=== PATIENT | female | born 1955 | race African-American/Black ===

== ENCOUNTER 2020-03-17 04:14 | Day surgery (SDC) | payer OTHER ==
[2020-03-14 09:48] VITALS: BMI 31.8
[2020-03-17] MEDS ORDERED: BUPIVACAINE HCL/PF 0.75% 10 ML VIAL ONE (07:13)
[2020-03-17] MEDS ORDERED: LIDOCAINE HCL/PF 1% SDV 5ML VIAL ONE (07:13)
[2020-03-17] MEDS ORDERED: BUPIVACAINE HCL 50 ML ONE (07:13)
[2020-03-17] MEDS ORDERED: DEXAMETHASONE SOD PHOSPHATE/PF 10 MG/ML SDV ONE (07:13)
[2020-03-17] MEDS ORDERED: SODIUM CHLORIDE 0.9% P/F 10 ML VIAL IJ ONE (07:21)
[2020-03-17] MEDS ORDERED: BUPIVACAINE HCL/PF 0.75% 10 ML VIAL CAUD ONE (13:04)
[2020-03-17] MEDS ORDERED: LIDOCAINE HCL 1% PRESERVATIVE FREE - 30ML VIAL INF ONE (13:04)
[2020-03-17] MEDS ORDERED: IOHEXOL 180 MG/1 ML ML IT ONE (13:05)
[2020-03-17 16:08] VITALS: BP 136/81; PULSE 81; TEMP 98.8
== END 2020-03-17 14:20 | disposition home or self-care (01) ==
LOC: JASU-SURG 04:14
PROVIDERS: ATTEND Pain Medicine Pain Medicine
PROC: 3E0T33Z Introduction of Anti-inflammatory into Peripheral Nerves and Plexi, Percutaneous Approach (ICD-10-PCS; 2020-03-17)
PROC: 3E0T3BZ Introduction of Anesthetic Agent into Peripheral Nerves and Plexi, Percutaneous Approach (ICD-10-PCS; principal; 2020-03-17 14:00)
DX: M54.16 Radiculopathy, lumbar region (principal)
CPT/HCPCS: 76000-TC-FY; 82962

== ENCOUNTER 2020-10-04 10:37 | Emergency (ER) | payer OTHER ==
[2020-10-04 10:56] VITALS: BP 153/91; PULSE 109; TEMP 98.2; BMI 29.6
[2020-10-04 12:08] LABS: HEMATOCRIT 29.8 % (32.4-45.2); HEMOGLOBIN 9.6 GM/dL (10.7-15.3); MCH 30.4 pg (25.7-33.7); MCHC 32.3 g/dl (32.0-36.0); MEAN CELL VOLUME 94.2 fl (80-96); MONO % 7.2 % (3.8-10.2); NEUT % 64.8 % (42.8-82.8); PLATELET COUNT 257 10^3/uL (134-434); RBC 3.16 M/mm3 (3.60-5.2); RDW 13.4 % (11.6-15.6)
[2020-10-04 12:26] LABS: CHLORIDE 102 mmol/L (98-107); SODIUM 134 mmol/L (136-145)
[2020-10-04 12:29] LABS: CALCIUM 9.4 mg/dL (8.5-10.1)
[2020-10-04 12:30] LABS: ALBUMIN 3.3 g/dl (3.4-5.0); BLOOD UREA NITROGEN 25.8 mg/dL (7-18); CO2 24 mmol/L (21-32); GLUCOSE,RANDOM 324 mg/dL (74-106); MAGNESIUM 2.2 mg/dL (1.8-2.4)
[2020-10-04 12:33] LABS: CREATININE 1.4 mg/dL (0.55-1.3); SGOT/AST 28 U/L (15-37); SGPT/ALT 25 U/L (13-61)
[2020-10-04 12:34] LABS: BILIRUBIN,TOTAL 0.4 mg/dL (0.2-1)
[2020-10-04 12:35] LABS: TOT PROT 7.2 g/dl (6.4-8.2)
[2020-10-04 12:36] LABS: ALK PHOS 100 U/L (45-117)
[2020-10-04 12:44] LABS: ANION GAP 7 MMOL/L (8-16)
[2020-10-04 13:47] LABS: CHLORIDE 103 mmol/L (98-107); SODIUM 135 mmol/L (136-145)
[2020-10-04 13:48] LABS: CALCIUM 9.4 mg/dL (8.5-10.1)
[2020-10-04 13:49] LABS: BLOOD UREA NITROGEN 27.4 mg/dL (7-18); CO2 25 mmol/L (21-32); GLUCOSE,RANDOM 292 mg/dL (74-106)
[2020-10-04 13:52] LABS: CREATININE 1.4 mg/dL (0.55-1.3)
[2020-10-04 13:56] LABS: ANION GAP 6 MMOL/L (8-16)
[2020-10-04] MEDS ORDERED: SODIUM CHLORIDE 1,000 ML IV STA (14:05)
[2020-10-04] MEDS ORDERED: SODIUM ZIRCONIUM CYCLOSILICATE (LOKELMA) 5 GM PACKET ONE (16:07)
[2020-10-05] MEDS ORDERED: SODIUM ZIRCONIUM CYCLOSILICATE (LOKELMA) 5 GM PACKET PO ONE (14:00)
== END 2020-10-04 16:19 | disposition home or self-care (01) ==
LOC: JER 10:37
PROC: 3E0337Z Introduction of Electrolytic and Water Balance Substance into Peripheral Vein, Percutaneous Approach (ICD-10-PCS; principal; 2020-10-04)
DX: E87.5 Hyperkalemia (principal)
CPT/HCPCS: 36415; 80048; 80053; 83735; 85025; 93005; 93010; 99284-25

== ENCOUNTER 2021-04-18 16:00 | Emergency (ER) | payer OTHER ==
[2021-04-18 16:25] VITALS: BP 159/98; PULSE 102; TEMP 98.2; BMI 32.8
== END 2021-04-18 19:06 | disposition home or self-care (01) ==
LOC: FER 16:00
DX: S09.90XA Unspecified injury of head, initial encounter (principal); W19.XXXA Unspecified fall, initial encounter; Y92.9 Unspecified place or not applicable
CPT/HCPCS: 70450-TC; 99284-25

== ENCOUNTER 2021-04-20 11:08 | Day surgery (SDC) | payer OTHER ==
[2021-04-20 11:46] VITALS: BMI 33.5
[2021-04-20] MEDS ORDERED: BUPIVACAINE HCL 50 ML ONE (13:24)
[2021-04-20] MEDS ORDERED: BUPIVACAINE LIPOSOME/PF (EXPAREL) 266 MG/20 ML VIAL ONE (13:24)
[2021-04-20] MEDS ORDERED: BUPIVACAINE HCL/PF 0.25% (2.5MG/ML) 10 ML VIAL ONE (13:27)
[2021-04-20] MEDS ORDERED: MIDAZOLAM HCL 2 MG/2 ML SINGLE DOSE VIAL ONE (13:29)
[2021-04-20] MEDS ORDERED: PROPOFOL 20 ML ONE (13:53)
[2021-04-20] MEDS ORDERED: VANCOMYCIN 1,000 MG VIAL (RESTRICTED TO ID ONLY) ONE (14:03)
[2021-04-20] MEDS ORDERED: ceFAZolin SODIUM 1 GM VIAL ONE ×2 (14:03→21:03)
[2021-04-20] MEDS ORDERED: DEXAMETHASONE SOD PHOSPHATE 4 MG/1 ML VIAL ONE (14:20)
[2021-04-20] MEDS ORDERED: HYDROmorphone HCL/PF 1 MG/ML VIAL ONE (15:09)
[2021-04-20] MEDS ORDERED: ONDANSETRON 4 MG/2 ML VIAL ONE ×2 (16:02→17:00)
[2021-04-20] MEDS ORDERED: ONDANSETRON 4 MG/2 ML VIAL IVPUSH PRN (16:42)
[2021-04-20] MEDS ORDERED: MAG HYDROX/AL HYDROX/SIMETH 30 ML UNIT-DOSE CUP PO PRN (16:42)
[2021-04-20] MEDS ORDERED: LACTATED RINGERS SOLUTION 1,000 ML IV SCH (16:45)
[2021-04-20] MEDS ORDERED: ACETAMINOPHEN 1000 MG/100 ML BAG IVPB ONE (16:48)
[2021-04-20] MEDS ORDERED: oxyCODONE HCL 5 MG TABLET PO PRN (16:48)
[2021-04-20] MEDS ORDERED: ACETAMINOPHEN INJECTION 100 ML IVPB ONE (16:52)
[2021-04-20] MEDS: LACTATED RINGERS SOLUTION 1,000 ML IV SCH (18:19)
[2021-04-20] MEDS ORDERED: DEXTROSE 5%-WATER - 100 ML IVPB ONE (21:03)
[2021-04-20] MEDS: oxyCODONE HCL 5 MG TABLET PO PRN (21:20)
[2021-04-20] MEDS: GABAPENTIN 300 MG CAPSULE PO SCH (21:23)
[2021-04-20] MEDS: CEFAZOLIN 2 GM in DEXTROSE 5%-WATER - 100 ML IVPB SCH (21:23)
[2021-04-20] MEDS: SENNOSIDES/DOCUSATE COMBO (SENNA PLUS) TABLET (UD) PO SCH (21:23)
[2021-04-21] MEDS ORDERED: ceFAZolin SODIUM 1 GM VIAL ONE ×2 (05:40→13:31)
[2021-04-21] MEDS ORDERED: DEXTROSE 5%-WATER - 100 ML IVPB ONE ×2 (05:40→13:31)
[2021-04-21] MEDS: CEFAZOLIN 2 GM in DEXTROSE 5%-WATER - 100 ML IVPB SCH ×2 (05:46→13:35)
[2021-04-21] MEDS: oxyCODONE HCL 5 MG TABLET PO PRN ×3 (05:57→16:26)
[2021-04-21 08:16] LABS: CALCIUM 9.1 mg/dl (8.5-10)
[2021-04-21] MEDS: GABAPENTIN 300 MG CAPSULE PO SCH (09:30)
[2021-04-21] MEDS: SENNOSIDES/DOCUSATE COMBO (SENNA PLUS) TABLET (UD) PO SCH (09:30)
[2021-04-21] MEDS ORDERED: MULTIVITAMINS (DAILY MVI) TABLET (FP) PO SCH (10:00)
[2021-04-21] MEDS ORDERED: PANTOPRAZOLE 40 MG TABLET PO SCH (10:00)
[2021-04-21] MEDS ORDERED: PATIENT'S OWN MEDICATION (NON-FORMULARY) (Sitagliptin Phos/Metformin Hcl [Janumet 50-1,000 PO SCH (10:45)
[2021-04-21 11:22] LABS: HEMATOCRIT 32.7 % (32.4-45.2); HEMOGLOBIN 10.2 GM/dL (10.7-15.3); MCHC 31.3 g/dl (32.0-36.0); MEAN CELL VOLUME 89.4 fl (80-96); MEAN PLT VOLUME 11.3 fl (7.5-11.1); PLATELET COUNT 257 10^3/uL (134-434); RBC 3.66 M/mm3 (3.60-5.2); RDW 14.2 % (11.6-15.6); WHITE BLOOD COUNT 8.6 K/mm3 (4.0-10.0)
[2021-04-21] MEDS: LACTATED RINGERS SOLUTION 1,000 ML IV SCH (16:28)
[2021-04-21] MEDS ORDERED: metFORMIN HCL 500 MG TABLET (FP) PO SCH (16:30)
[2021-04-21] MEDS ORDERED: sitaGLIPtin PHOSPHATE 50 MG TABLET PO SCH (16:30)
[2021-04-21 18:55] VITALS: BP 127/68; PULSE 79; TEMP 98.4
[2021-04-21] MEDS ORDERED: ASPIRIN 325 MG TABLET PO SCH (22:00)
[2021-04-22] MEDS ORDERED: amLODIPine BESYLATE 10 MG TABLET (FP) PO SCH (10:00)
[2021-04-22] MEDS ORDERED: metoPROLOL SUCCINATE 25 MG TAB.SR.24H (FP) PO SCH (10:00)
[2021-04-22] MEDS ORDERED: ATORVASTATIN CA 10 MG TABLET (FP) PO SCH (10:00)
== END 2021-04-21 19:10 | disposition home or self-care (01) ==
LOC: FASU 11:08 → FM/S 16:06 → FASU 04-21 19:10
PROVIDERS: ATTEND Orthopaedic Surgery Sports Medicine
PROC: 0QSG04Z Reposition Right Tibia with Internal Fixation Device, Open Approach (ICD-10-PCS; 2021-04-20)
PROC: 0SSF0ZZ Reposition Right Ankle Joint, Open Approach (ICD-10-PCS; 2021-04-20)
PROC: 0QSJ04Z Reposition Right Fibula with Internal Fixation Device, Open Approach (ICD-10-PCS; principal; 2021-04-20 14:34)
DX: S82.841A Displaced bimalleolar fracture of right lower leg, initial encounter for closed fracture (principal); X58.XXXA Exposure to other specified factors, initial encounter; Y93.9 Activity, unspecified; Y92.9 Unspecified place or not applicable
CPT/HCPCS: 27814; 27829; C1713; 36415; 73610-TC-RT-FY; 80048; 82962; 85027; 94760; 97116-GP; 97162-GP

== ENCOUNTER 2021-05-12 09:32 | Inpatient (IN) | payer OTHER ==
[2021-05-12 11:01] LABS: HEMATOCRIT 31.9 % (32.4-45.2); HEMOGLOBIN 10.3 GM/dL (10.7-15.3); MCH 27.5 pg (25.7-33.7); MCHC 32.2 g/dl (32.0-36.0); MEAN CELL VOLUME 85.4 fl (80-96); PLATELET COUNT 178 10^3/uL (134-434); RBC 3.74 M/mm3 (3.60-5.2); RDW 15.4 % (11.6-15.6); WHITE BLOOD COUNT 4.4 K/mm3 (4.0-10.0)
[2021-05-12] MEDS ORDERED: SODIUM CHLORIDE 0.9% 500 ML INFUS.BAG IV ONE (11:01)
[2021-05-12] MEDS ORDERED: ACETAMINOPHEN 1000 MG/100 ML BAG IVPB ONE ×2 (11:01→20:24)
[2021-05-12 11:16] LABS: INR 0.97 (0.83-1.09); PROTHROMBIN TIME (PATIENT) 11.1 SEC (9.7-13.0)
[2021-05-12 11:19] LABS: ACTIVATED PTT 32.7 SECONDS (25.2-36.5)
[2021-05-12 11:29] LABS: CHLORIDE 100 mmol/L (98-107); SODIUM 128 mmol/L (136-145)
[2021-05-12 11:31] LABS: ALBUMIN 2.7 g/dl (3.4-5.0); BLOOD UREA NITROGEN 27.8 mg/dL (7-18); CALCIUM 8.6 mg/dL (8.5-10.1); GLUCOSE,RANDOM 182 mg/dL (74-106); MAGNESIUM 2.3 mg/dL (1.8-2.4)
[2021-05-12] MEDS ORDERED: ACETAMINOPHEN INJECTION 100 ML IVPB ONE (11:31)
[2021-05-12 11:34] LABS: CO2 22 mmol/L (21-32); CREATININE 1.5 mg/dL (0.55-1.3); PHOSPHOROUS 3.7 mg/dL (2.5-4.9)
[2021-05-12 11:35] LABS: ANISOCYTOSIS 0; HELMET CELLS 0; HOWELL-JOLLY BODIES 0; MACROCYTOSIS 0; OVALOCYTE 0; ROULEAU 0; SICKELED CELLS 0; TARGET CELLS 0; TEAR DROP CELLS 0; TOXIC GRANULATION 0
[2021-05-12 11:36] LABS: BILIRUBIN,TOTAL 0.7 mg/dL (0.2-1); TOT PROT 7.1 g/dl (6.4-8.2)
[2021-05-12 11:37] LABS: ALK PHOS 104 U/L (45-117)
[2021-05-12 11:48] LABS: ANION GAP 6 MMOL/L (8-16); SGOT/AST 213 U/L (15-37); SGPT/ALT 62 U/L (13-61)
[2021-05-12 13:34] LABS: EPI CELLS 6 /uL (0-25.1); HYALINE CASTS 0 /uL (0-3.1); URINE APPEARANCE CLEAR; URINE BACTERIA 0 /uL (0-1359); URINE BILIRUBIN NEGATIVE (NEGATIVE); URINE COLOR YELLOW; URINE GLUCOSE (UA) NEGATIVE (NEGATIVE); URINE KETONE TRACE (NEGATIVE); URINE LEUK ESTERASE NEGATIVE (NEGATIVE); URINE NITRITE NEGATIVE (NEGATIVE); URINE PROTEIN 4+ (NEGATIVE); URINE RBC 56 /uL (0-23.9); URINE UROBILINOGEN 0.2 mg/dL (0.2-1.0); URINE WBC 4 /uL (0-25.8)
[2021-05-12 13:45] LABS: CHLORIDE 102 mmol/L (98-107); SODIUM 129 mmol/L (136-145)
[2021-05-12 13:46] LABS: CALCIUM 8.4 mg/dL (8.5-10.1)
[2021-05-12 13:47] LABS: CO2 24 mmol/L (21-32); GLUCOSE,RANDOM 181 mg/dL (74-106)
[2021-05-12 13:50] LABS: CREATININE 1.4 mg/dL (0.55-1.3)
[2021-05-12 14:06] LABS: ANION GAP 4 MMOL/L (8-16)
[2021-05-12] MEDS ORDERED: VANCOMYCIN 1 GM in D5W (PRE-DOCKED) 1,000 MG/250 ML IVPB ONE (15:56)
[2021-05-12] MEDS ORDERED: PIPERACILLIN/TAZOB 4.5 GM 4.5 GM in DEXTROSE 5%-WATER 100 ML IVPB ONE (15:56)
[2021-05-12 16:54] LABS: CHLORIDE 103 mmol/L (98-107); SODIUM 132 mmol/L (136-145)
[2021-05-12 16:55] LABS: CALCIUM 8.6 mg/dL (8.5-10.1)
[2021-05-12 16:56] LABS: ANION GAP 8 MMOL/L (8-16); BLOOD UREA NITROGEN 29.6 mg/dL (7-18); CO2 22 mmol/L (21-32); GLUCOSE,RANDOM 169 mg/dL (74-106)
[2021-05-12 16:59] LABS: CREATININE 1.3 mg/dL (0.55-1.3)
[2021-05-12] MEDS ORDERED: PIPERACILLIN/TAZOB 4.5 GM 4.5 GM/100 ML BAG IVPB ONE (17:03)
[2021-05-12] MEDS ORDERED: VANCOMYCIN 1 GRAM (PRE-DOCKED) 1,000 MG/250 ML BAG IVPB ONE (17:04)
[2021-05-12] MEDS: SODIUM CHLORIDE 1,000 ML IV SCH (17:20)
[2021-05-12] MEDS ORDERED: ACETAMINOPHEN 325 MG TABLET (FP) PO PRN (17:36)
[2021-05-12] MEDS ORDERED: ENOXAPARIN NA (PORCINE) 40 MG/0.4 ML DISP.SYRIN SQ ONE (19:31)
[2021-05-12] MEDS ORDERED: PIPERACILLIN/TAZOB 3.375 GM 3.375 GM/50 ML BAG IVPB ONE (19:31)
[2021-05-12] MEDS: ENOXAPARIN NA (PORCINE) 40 MG/0.4 ML DISP.SYRIN SQ SCH (20:07)
[2021-05-12] MEDS: PIPERACILLIN/TAZOB 3.375 GM 3.375 GM in DEXTROSE 5%-WATER - 50 ML IVPB SCH (20:44)
[2021-05-12] MEDS ORDERED: DOCUSATE SODIUM 100 MG CAPSULE (FP) PO ONE (22:26)
[2021-05-12] MEDS ORDERED: ATORVASTATIN CA 20 MG TABLET (FP) ONE (22:26)
[2021-05-12] MEDS: PRAMIPEXOLE DIHYDROCHLORIDE 0.25 MG TABLET PO SCH (22:57)
[2021-05-12] MEDS: ATORVASTATIN CA 20 MG TABLET (FP) PO SCH (22:57)
[2021-05-12] MEDS: GABAPENTIN 300 MG CAPSULE PO SCH (22:57)
[2021-05-12] MEDS: DOCUSATE SODIUM 100 MG CAPSULE (FP) PO SCH (22:57)
[2021-05-13] MEDS ORDERED: PIPERACILLIN/TAZOB 3.375 GM 3.375 GM/50 ML BAG IVPB ONE ×2 (02:53→10:23)
[2021-05-13] MEDS: PIPERACILLIN/TAZOB 3.375 GM 3.375 GM in DEXTROSE 5%-WATER - 50 ML IVPB SCH ×2 (03:25→11:06)
[2021-05-13] MEDS: GABAPENTIN 300 MG CAPSULE PO SCH ×3 (06:21→21:25)
[2021-05-13 07:06] LABS: HEMATOCRIT 26.4 % (32.4-45.2); HEMOGLOBIN 8.9 GM/dL (10.7-15.3); MCH 28.4 pg (25.7-33.7); MCHC 33.8 g/dl (32.0-36.0); MEAN PLT VOLUME 10.2 fl (7.5-11.1); PLATELET COUNT 138 10^3/uL (134-434); RBC 3.14 M/mm3 (3.60-5.2); RDW 15.1 % (11.6-15.6); WHITE BLOOD COUNT 4.1 K/mm3 (4.0-10.0)
[2021-05-13 07:31] LABS: CHLORIDE 105 mmol/L (98-107); SODIUM 133 mmol/L (136-145)
[2021-05-13 07:34] LABS: ALBUMIN 2.4 g/dl (3.4-5.0); CALCIUM 8.1 mg/dL (8.5-10.1)
[2021-05-13 07:35] LABS: ANION GAP 6 MMOL/L (8-16); BLOOD UREA NITROGEN 23.8 mg/dL (7-18); CO2 22 mmol/L (21-32); GLUCOSE,RANDOM 193 mg/dL (74-106)
[2021-05-13 07:37] LABS: CHOLESTEROL 112 mg/dL (50-200); CREATININE 1.1 mg/dL (0.55-1.3); SGOT/AST 113 U/L (15-37)
[2021-05-13 07:38] LABS: PHOSPHOROUS 2.7 mg/dL (2.5-4.9); SGPT/ALT 47 U/L (13-61); TRIGLYCERIDES 363 mg/dL (0-150)
[2021-05-13 07:39] LABS: BILIRUBIN,TOTAL 0.6 mg/dL (0.2-1); LDL CHOLESTEROL (ONLY SJRH) 19 mg/dL (5-100); TOT PROT 5.7 g/dl (6.4-8.2)
[2021-05-13 07:40] LABS: ALK PHOS 91 U/L (45-117); HDL CHOLESTEROL 18 mg/dL (40-60)
[2021-05-13] MEDS: ELVITEG/COB/EMTRI/TENOF (GENVOYA) TABLET (NF) PO SCH (09:00)
[2021-05-13 09:47] LABS: IRON SERUM 47 ug/dL (50-175); TOTAL IRON BINDING CAPACITY 188 ug/dL (250-450)
[2021-05-13] MEDS: ASPIRIN COATED 81 MG TABLET.EC PO SCH (10:00)
[2021-05-13] MEDS ORDERED: FAMOTIDINE 40 MG TABLET PO SCH (10:00)
[2021-05-13] MEDS ORDERED: PATIENT'S OWN MEDICATION (NON-FORMULARY) (Famotidine [Pepcid] 40 MG Tablet) PO SCH (10:00)
[2021-05-13] MEDS: DOCUSATE SODIUM 100 MG CAPSULE (FP) PO SCH (10:00)
[2021-05-13] MEDS: ENOXAPARIN NA (PORCINE) 40 MG/0.4 ML DISP.SYRIN SQ SCH (10:00)
[2021-05-13] MEDS: amLODIPine BESYLATE 10 MG TABLET (FP) PO SCH (10:04)
[2021-05-13] MEDS: metoPROLOL SUCCINATE 25 MG TAB.SR.24H (FP) PO SCH (10:06)
[2021-05-13 10:07] LABS: ANISOCYTOSIS 0; HELMET CELLS 0; HOWELL-JOLLY BODIES 0; MACROCYTOSIS 0; OVALOCYTE 0; ROULEAU 0; SICKELED CELLS 0; TARGET CELLS 0; TEAR DROP CELLS 0; TOXIC GRANULATION 0
[2021-05-13] MEDS ORDERED: metoPROLOL SUCCINATE 25 MG TAB.SR.24H (FP) ONE (10:20)
[2021-05-13] MEDS ORDERED: ASPIRIN COATED 81 MG TABLET.EC ONE (10:20)
[2021-05-13] MEDS ORDERED: FAMOTIDINE 20 MG TABLET ONE (10:20)
[2021-05-13] MEDS ORDERED: amLODIPine BESYLATE 10 MG TABLET (FP) ONE (10:20)
[2021-05-13] MEDS ORDERED: DOCUSATE SODIUM 100 MG CAPSULE (FP) PO ONE (10:21)
[2021-05-13] MEDS ORDERED: ENOXAPARIN NA (PORCINE) 40 MG/0.4 ML DISP.SYRIN SQ ONE (10:22)
[2021-05-13] MEDS ORDERED: CEFTRIAXONE 1 GM/50 ML BAG ONE (10:26)
[2021-05-13] MEDS: PRAMIPEXOLE DIHYDROCHLORIDE 0.25 MG TABLET PO SCH ×2 (12:00→21:25)
[2021-05-13] MEDS: SODIUM CHLORIDE 1,000 ML IV SCH (18:31)
[2021-05-13 19:05] VITALS: BMI 33.5
[2021-05-13 19:10] LABS: SARS-CoV-2 NAA Not Detected (Not Detected)
[2021-05-13] MEDS: traMADol HCL 50 MG TABLET PO PRN (21:25)
[2021-05-13] MEDS: ATORVASTATIN CA 20 MG TABLET (FP) PO SCH (21:25)
[2021-05-13] MEDS: MELATONIN 5 MG TABLETS PO PRN (21:25)
[2021-05-14] MEDS: GABAPENTIN 300 MG CAPSULE PO SCH ×3 (06:10→20:59)
[2021-05-14] MEDS: ENOXAPARIN NA (PORCINE) 40 MG/0.4 ML DISP.SYRIN SQ SCH (10:15)
[2021-05-14] MEDS: metoPROLOL SUCCINATE 25 MG TAB.SR.24H (FP) PO SCH (10:15)
[2021-05-14] MEDS: amLODIPine BESYLATE 10 MG TABLET (FP) PO SCH (10:15)
[2021-05-14] MEDS: ASPIRIN COATED 81 MG TABLET.EC PO SCH (10:16)
[2021-05-14] MEDS: ELVITEG/COB/EMTRI/TENOF (GENVOYA) TABLET (NF) PO SCH (10:17)
[2021-05-14] MEDS: PRAMIPEXOLE DIHYDROCHLORIDE 0.25 MG TABLET PO SCH ×2 (10:17→20:59)
[2021-05-14 12:08] LABS: BASO % 0.9 % (0-2.0); EOS % 11.2 % (0-4.5); HEMOGLOBIN 8.4 GM/dL (10.7-15.3); LYMPH % 30.8 % (8-40); MCH 27.7 pg (25.7-33.7); MCHC 32.4 g/dl (32.0-36.0); MEAN CELL VOLUME 85.3 fl (80-96); MEAN PLT VOLUME 10.7 fl (7.5-11.1); MONO % 12.5 % (3.8-10.2); NEUT % 44.6 % (42.8-82.8); PLATELET COUNT 150 10^3/uL (134-434); RBC 3.05 M/mm3 (3.60-5.2); WHITE BLOOD COUNT 4.2 K/mm3 (4.0-10.0)
[2021-05-14 12:21] LABS: CHLORIDE 104 mmol/L (98-107); SODIUM 134 mmol/L (136-145)
[2021-05-14 12:36] LABS: ALBUMIN 2.3 g/dl (3.4-5.0); ANION GAP 9 MMOL/L (8-16); BLOOD UREA NITROGEN 14.8 mg/dL (7-18); CO2 21 mmol/L (21-32); GLUCOSE,RANDOM 220 mg/dL (74-106)
[2021-05-14 12:39] LABS: CREATININE 0.8 mg/dL (0.55-1.3); SGOT/AST 132 U/L (15-37); SGPT/ALT 70 U/L (13-61)
[2021-05-14 12:41] LABS: ALK PHOS 98 U/L (45-117); BILIRUBIN,TOTAL 0.5 mg/dL (0.2-1); TOT PROT 5.6 g/dl (6.4-8.2)
[2021-05-14] MEDS: SODIUM CHLORIDE 1,000 ML IV SCH ×2 (13:18→15:05)
[2021-05-14] MEDS: traMADol HCL 50 MG TABLET PO PRN (20:58)
[2021-05-14] MEDS: ATORVASTATIN CA 20 MG TABLET (FP) PO SCH (20:59)
[2021-05-15] MEDS: GABAPENTIN 300 MG CAPSULE PO SCH ×3 (05:53→21:43)
[2021-05-15 09:17] LABS: CHLORIDE 106 mmol/L (98-107); SODIUM 136 mmol/L (136-145)
[2021-05-15 09:20] LABS: CALCIUM 7.7 mg/dL (8.5-10.1)
[2021-05-15 09:21] LABS: ALBUMIN 2.3 g/dl (3.4-5.0); ANION GAP 8 MMOL/L (8-16); BLOOD UREA NITROGEN 11.9 mg/dL (7-18); CO2 21 mmol/L (21-32); GLUCOSE,RANDOM 252 mg/dL (74-106)
[2021-05-15 09:24] LABS: CREATININE 0.7 mg/dL (0.55-1.3); SGOT/AST 134 U/L (15-37); SGPT/ALT 81 U/L (13-61)
[2021-05-15 09:25] LABS: TOT PROT 5.8 g/dl (6.4-8.2)
[2021-05-15 09:26] LABS: ALK PHOS 106 U/L (45-117); BILIRUBIN,TOTAL 0.5 mg/dL (0.2-1)
[2021-05-15 09:35] LABS: BASO % 0.9 % (0-2.0); EOS % 10.8 % (0-4.5); HEMATOCRIT 27.2 % (32.4-45.2); HEMOGLOBIN 8.8 GM/dL (10.7-15.3); LYMPH % 35.4 % (8-40); MCH 27.8 pg (25.7-33.7); MCHC 32.5 g/dl (32.0-36.0); MEAN CELL VOLUME 85.6 fl (80-96); MEAN PLT VOLUME 10.6 fl (7.5-11.1); MONO % 17.6 % (3.8-10.2); NEUT % 35.3 % (42.8-82.8); PLATELET COUNT 172 10^3/uL (134-434); RBC 3.18 M/mm3 (3.60-5.2); RDW 15.3 % (11.6-15.6); WHITE BLOOD COUNT 3.8 K/mm3 (4.0-10.0)
[2021-05-15] MEDS: PRAMIPEXOLE DIHYDROCHLORIDE 0.25 MG TABLET PO SCH ×2 (09:43→21:44)
[2021-05-15] MEDS: ENOXAPARIN NA (PORCINE) 40 MG/0.4 ML DISP.SYRIN SQ SCH (09:43)
[2021-05-15] MEDS: ASPIRIN COATED 81 MG TABLET.EC PO SCH (09:43)
[2021-05-15] MEDS: ELVITEG/COB/EMTRI/TENOF (GENVOYA) TABLET (NF) PO SCH (09:43)
[2021-05-15] MEDS: amLODIPine BESYLATE 5 MG TABLET (FP) PO SCH (09:43)
[2021-05-15] MEDS: PIPERACILLIN/TAZOB 3.375 GM 3.375 GM in DEXTROSE 5%-WATER - 50 ML IVPB SCH (10:26)
[2021-05-15 16:08] LABS: GLIADIN ANTIBODY IGA 5 units (0-19); GLIADIN ANTIBODY IGG 2 units (0-19); TRANSGLUTAMINASE IGG < 2 U/mL (0-5)
[2021-05-15] MEDS ORDERED: traMADol HCL 50 MG TABLET PO PRN (19:57)
[2021-05-15] MEDS: ATORVASTATIN CA 20 MG TABLET (FP) PO SCH (21:43)
[2021-05-15] MEDS: MELATONIN 5 MG TABLETS PO PRN (21:50)
[2021-05-16] MEDS: GABAPENTIN 300 MG CAPSULE PO SCH ×2 (05:49→13:39)
[2021-05-16] MEDS: SODIUM CHLORIDE 1,000 ML IV SCH (05:50)
[2021-05-16] MEDS: PRAMIPEXOLE DIHYDROCHLORIDE 0.25 MG TABLET PO SCH (09:04)
[2021-05-16] MEDS: amLODIPine BESYLATE 5 MG TABLET (FP) PO SCH (09:04)
[2021-05-16] MEDS: ENOXAPARIN NA (PORCINE) 40 MG/0.4 ML DISP.SYRIN SQ SCH (09:04)
[2021-05-16] MEDS: ELVITEG/COB/EMTRI/TENOF (GENVOYA) TABLET (NF) PO SCH (09:04)
[2021-05-16] MEDS: ASPIRIN COATED 81 MG TABLET.EC PO SCH (09:04)
[2021-05-16 14:39] VITALS: BP 138/73; PULSE 81; TEMP 98.6
== END 2021-05-16 16:06 | disposition home health service (06) | DRG 469 ==
LOC: JER 09:32 → JERBED 16:23 → J4S 05-13 18:52
PROVIDERS: ADMIT Family Medicine; ATTEND Family Medicine
DX: N17.9 Acute kidney failure, unspecified (principal); I24.8 Other forms of acute ischemic heart disease; I10 Essential (primary) hypertension; E78.5 Hyperlipidemia, unspecified; E11.9 Type 2 diabetes mellitus without complications; Z21 Asymptomatic human immunodeficiency virus [HIV] infection status; R50.9 Fever, unspecified; R00.0 Tachycardia, unspecified; E66.9 Obesity, unspecified; Z68.33 Body mass index [BMI] 33.0-33.9, adult; E87.5 Hyperkalemia; E87.1 Hypo-osmolality and hyponatremia; M62.82 Rhabdomyolysis; K90.0 Celiac disease; K76.0 Fatty (change of) liver, not elsewhere classified; D64.9 Anemia, unspecified; R77.8 Other specified abnormalities of plasma proteins; I25.10 Atherosclerotic heart disease of native coronary artery without angina pectoris; L97.319 Non-pressure chronic ulcer of right ankle with unspecified severity; R79.89 Other specified abnormal findings of blood chemistry; I45.10 Unspecified right bundle-branch block; R26.9 Unspecified abnormalities of gait and mobility
CPT/HCPCS: 36415; 71045-TC-FY; 71275-TC; 73610-TC-RT-FY; 76700-TC; 76775-TC; 80048; 80053; 80061; 81003; 82436; 82550; 82553; 82570; 82728; 82784; 83036; 83516; 83540; 83550; 83735; 83930; 83935; 84100; 84133; 84155; 84156; 84165; 84300; 84443; 84484; 85025; 85045; 85610; 85730; 86038; 86334; 86359; 86360; 86705; 86708; 86803; 87040; 87086; 87340; 87517; 87536; 87804; 93005; 93010; 93306-TC; 93971-TC; 97116-GP; 97161-GP; 99285-25; C1887; C9803; Q9967; U0003; U0005

== ENCOUNTER 2022-03-26 04:27 | Day surgery (SDC) | payer OTHER ==
[2022-03-21 10:24] VITALS: BMI 27.4
[~2022-03-26 04:27] MED LIST: BUPIVACAINE HCL/PF 0.5% (5MG/ML) 10 ML VIAL IJ ONE; IOHEXOL 180 MG/1 ML ML IJ ONE; LIDOCAINE HCL 1% PRESERVATIVE FREE - 30ML VIAL IJ ONE; TRIAMCINOLONE ACETONIDE 40 MG/ML 10 ML VIAL IJ ONE
[2022-03-26] MEDS ORDERED: LIDOCAINE HCL/PF 1% SDV 5ML VIAL ONE (07:18)
[2022-03-26] MEDS ORDERED: TRIAMCINOLONE ACET 40MG/1ML VIAL ONE (07:18)
[2022-03-26] MEDS ORDERED: BUPIVACAINE HCL/PF 0.5% (5MG/ML) 10 ML VIAL ONE (07:18)
[2022-03-26 08:59] VITALS: TEMP 98.7
[2022-03-26] MEDS ORDERED: LIDOCAINE HCL 1% PRESERVATIVE FREE - 30ML VIAL IJ ONE (10:46)
[2022-03-26] MEDS ORDERED: IOHEXOL 180 MG/1 ML ML IJ ONE (10:46)
[2022-03-26] MEDS ORDERED: TRIAMCINOLONE ACETONIDE 40 MG/ML 10 ML VIAL IJ ONE (10:46)
[2022-03-26] MEDS ORDERED: BUPIVACAINE HCL/PF 0.5% (5MG/ML) 10 ML VIAL IJ ONE (10:46)
[2022-03-26 11:20] VITALS: BP 145/83; PULSE 96; RESP 18
== END 2022-03-26 11:50 | disposition home or self-care (01) ==
LOC: JASU-SURG 04:27
PROVIDERS: ATTEND Pain Medicine Pain Medicine
PROC: 3E0U3BZ Introduction of Anesthetic Agent into Joints, Percutaneous Approach (ICD-10-PCS; 2022-03-26)
PROC: 3E0U33Z Introduction of Anti-inflammatory into Joints, Percutaneous Approach (ICD-10-PCS; principal; 2022-03-26 10:00)
DX: M53.3 Sacrococcygeal disorders, not elsewhere classified (principal)
CPT/HCPCS: 76000-TC-FY

== ENCOUNTER 2022-06-07 05:35 | Day surgery (SDC) | payer OTHER ==
[2022-05-31 17:58] VITALS: BMI 27.4
[~2022-06-07 05:35] MED LIST changes: -BUPIVACAINE HCL/PF 0.5% (5MG/ML) 10 ML VIAL IJ ONE; +DEXAMETHASONE SOD PHOSPHATE 10 MG/1 ML VIAL IVPUSH ONE; -IOHEXOL 180 MG/1 ML ML IJ ONE; +LIDOCAINE 1% P/F 10 MG/ML VIAL PNB ONE; -LIDOCAINE HCL 1% PRESERVATIVE FREE - 30ML VIAL IJ ONE; -TRIAMCINOLONE ACETONIDE 40 MG/ML 10 ML VIAL IJ ONE
[2022-06-07] MEDS ORDERED: DEXAMETHASONE SOD PHOSPHATE 10 MG/1 ML VIAL ONE (07:45)
[2022-06-07] MEDS ORDERED: LIDOCAINE HCL/PF 1% SDV 5ML VIAL ONE (07:45)
[2022-06-07 12:58] VITALS: RESP 20
[2022-06-07] MEDS ORDERED: DEXAMETHASONE SOD PHOSPHATE 10 MG/1 ML VIAL IVPUSH ONE (14:00)
[2022-06-07] MEDS ORDERED: LIDOCAINE 1% P/F 10 MG/ML VIAL PNB ONE (14:00)
[2022-06-07] MEDS ORDERED: IOHEXOL 180 MG/1 ML ML IJ ONE (14:06)
[2022-06-07] MEDS ORDERED: ACETAMINOPHEN 500 MG TABLET (FP) PO ONE (14:56)
[2022-06-07 15:23] VITALS: BP 127/82; PULSE 90; TEMP 98
== END 2022-06-07 15:15 | disposition home or self-care (01) ==
LOC: JASU-SURG 05:35
PROVIDERS: ATTEND Pain Medicine Pain Medicine
PROC: 3E0R3BZ Introduction of Anesthetic Agent into Spinal Canal, Percutaneous Approach (ICD-10-PCS; 2022-06-07)
PROC: 3E0R33Z Introduction of Anti-inflammatory into Spinal Canal, Percutaneous Approach (ICD-10-PCS; principal; 2022-06-07 14:00)
DX: M48.061 Spinal stenosis, lumbar region without neurogenic claudication (principal); M54.16 Radiculopathy, lumbar region
CPT/HCPCS: 76000-TC-FY; J1100

== ENCOUNTER 2022-07-09 03:55 | Day surgery (SDC) | payer OTHER ==
[2022-07-05 17:44] VITALS: BMI 27.4
[2022-07-09] MEDS ORDERED: LIDOCAINE HCL/PF 1% SDV 5ML VIAL ONE (07:21)
[2022-07-09 07:40] VITALS: PULSE 98; RESP 20
[2022-07-09] MEDS ORDERED: LIDOCAINE HCL 1% PRESERVATIVE FREE - 30ML VIAL IJ ONE (09:20)
[2022-07-09] MEDS ORDERED: ACETAMINOPHEN 500 MG TABLET (FP) PO PRN (10:52)
[2022-07-09 10:55] VITALS: BP 162/91; TEMP 97.1
== END 2022-07-09 10:45 | disposition home or self-care (01) ==
LOC: JASU-SURG 03:55
PROVIDERS: ATTEND Pain Medicine Pain Medicine
PROC: 01HY3MZ Insertion of Neurostimulator Lead into Peripheral Nerve, Percutaneous Approach (ICD-10-PCS; principal; 2022-07-09 08:45)
DX: G89.4 Chronic pain syndrome (principal)
CPT/HCPCS: 64555; C1778

== ENCOUNTER 2022-08-02 04:11 | Day surgery (SDC) | payer OTHER ==
[2022-07-31 15:07] VITALS: BMI 28.3
[2022-08-02] MEDS ORDERED: LIDOCAINE HCL 1%, 10 MG/ML (10ML VIAL) MDV ONE (07:17)
[2022-08-02] MEDS ORDERED: LIDOCAINE HCL/PF 1% SDV 5ML VIAL ONE (07:23)
[2022-08-02] MEDS ORDERED: LIDOCAINE 1% P/F 10 MG/ML VIAL INF ONE ×2 (08:35)
[2022-08-02 17:21] VITALS: BP 136/75; PULSE 86; RESP 20; TEMP 97.2
== END 2022-08-02 11:19 | disposition home or self-care (01) ==
LOC: JASU-SURG 04:11
PROVIDERS: ATTEND Pain Medicine Pain Medicine
PROC: 01HY3MZ Insertion of Neurostimulator Lead into Peripheral Nerve, Percutaneous Approach (ICD-10-PCS; principal; 2022-08-02 09:00)
DX: G89.4 Chronic pain syndrome (principal)
CPT/HCPCS: 64555; C1778; 82962

== ENCOUNTER 2022-09-03 04:15 | Day surgery (SDC) | payer OTHER ==
[2022-08-30 08:33] VITALS: BMI 28.3
[~2022-09-03 04:15] MED LIST changes: -DEXAMETHASONE SOD PHOSPHATE 10 MG/1 ML VIAL IVPUSH ONE; -LIDOCAINE 1% P/F 10 MG/ML VIAL PNB ONE; +LIDOCAINE HCL 1% PRESERVATIVE FREE - 30ML VIAL INF ONE
[2022-09-03 06:59] VITALS: RESP 18
[2022-09-03] MEDS ORDERED: BUPIVACAINE HCL/PF 0.75% 10 ML VIAL ONE (07:17)
[2022-09-03] MEDS ORDERED: LIDOCAINE HCL/PF 1% SDV 5ML VIAL ONE (07:18)
[2022-09-03] MEDS ORDERED: LIDOCAINE HCL 1% PRESERVATIVE FREE - 30ML VIAL INF ONE ×2 (08:29)
[2022-09-03] MEDS ORDERED: ACETAMINOPHEN 500 MG TABLET (FP) PO ONE (09:15)
[2022-09-03] MEDS ORDERED: ACETAMINOPHEN 500 MG TABLET (FP) ONE (09:17)
[2022-09-03 10:07] VITALS: BP 141/83; PULSE 81; TEMP 98
[2022-09-03] MEDS ORDERED: ACETAMINOPHEN 500 MG TABLET (FP) PO PRN (19:58)
== END 2022-09-03 09:40 | disposition home or self-care (01) ==
LOC: JASU-SURG 04:15
PROVIDERS: ATTEND Pain Medicine Pain Medicine
PROC: 01HY3MZ Insertion of Neurostimulator Lead into Peripheral Nerve, Percutaneous Approach (ICD-10-PCS; principal; 2022-09-03 08:00)
DX: G89.4 Chronic pain syndrome (principal); M54.9 Dorsalgia, unspecified
CPT/HCPCS: 64555; C1778; 76000-TC-FY

== ENCOUNTER 2022-10-01 05:14 | Day surgery (SDC) | payer OTHER ==
[2022-09-25 13:44] VITALS: BMI 28.3
[~2022-10-01 05:14] MED LIST changes: +LIDOCAINE HCL 1% PRESERVATIVE FREE - 30ML VIAL IJ ONE; -LIDOCAINE HCL 1% PRESERVATIVE FREE - 30ML VIAL INF ONE
[2022-10-01] MEDS ORDERED: LIDOCAINE HCL/PF 1% SDV 5ML VIAL ONE (07:30)
[2022-10-01] MEDS ORDERED: ACETAMINOPHEN 500 MG TABLET (FP) PO PRN (08:17)
[2022-10-01] MEDS ORDERED: LIDOCAINE HCL 1% PRESERVATIVE FREE - 30ML VIAL IJ ONE ×2 (08:37)
[2022-10-01] MEDS ORDERED: ACETAMINOPHEN 500 MG TABLET (FP) ONE (09:24)
[2022-10-01 09:30] VITALS: TEMP 97.8
[2022-10-01 10:44] VITALS: BP 122/64; PULSE 88; RESP 18
== END 2022-10-01 10:25 | disposition home or self-care (01) ==
LOC: JASU-SURG 05:14
PROVIDERS: ATTEND Pain Medicine Pain Medicine
PROC: 01HY3MZ Insertion of Neurostimulator Lead into Peripheral Nerve, Percutaneous Approach (ICD-10-PCS; principal; 2022-10-01 08:00)
DX: G89.4 Chronic pain syndrome (principal); M54.59 Other low back pain
CPT/HCPCS: 64555; C1778; 76000-TC-FY

== ENCOUNTER 2022-12-17 04:48 | Day surgery (SDC) | payer OTHER ==
[2022-12-13 17:59] VITALS: BMI 28.3
[2022-12-17] MEDS ORDERED: MIDAZOLAM HCL 2 MG/2 ML SINGLE DOSE VIAL ONE (12:44)
[2022-12-17] MEDS ORDERED: ceFAZolin 2 GRAM PREMIX BAG IVPB ONE (12:50)
[2022-12-17] MEDS ORDERED: ceFAZolin SODIUM 1 GM VIAL ONE (12:50)
[2022-12-17] MEDS ORDERED: FENTANYL CITRATE/PF 50 MCG/ML VIAL ONE ×2 (12:54→13:47)
[2022-12-17] MEDS ORDERED: LIDOCAINE HCL 1%, 10 MG/ML (50 mL VIAL) INF ONE (13:02)
[2022-12-17] MEDS ORDERED: IOHEXOL 180 MG/1 ML ML IJ ONE (13:10)
[2022-12-17] MEDS ORDERED: DEXAMETHASONE SOD PHOSPHATE 10 MG/1 ML VIAL IVPUSH ONE (13:10)
[2022-12-17] MEDS ORDERED: LIDOCAINE HCL/PF 2% SDV 5ML VIAL INF ONE (13:15)
[2022-12-17 14:45] VITALS: RESP 18
[2022-12-17] MEDS ORDERED: ACETAMINOPHEN 500 MG TABLET (FP) PO PRN (15:04)
[2022-12-17 15:59] VITALS: BP 116/66; PULSE 67; TEMP 97.6
== END 2022-12-17 16:05 | disposition home or self-care (01) ==
LOC: JASU-SURG 04:48
PROVIDERS: ATTEND Pain Medicine Pain Medicine
PROC: 01NB3ZZ Release Lumbar Nerve, Percutaneous Approach (ICD-10-PCS; principal; 2022-12-17 13:00)
DX: M48.062 Spinal stenosis, lumbar region with neurogenic claudication (principal)
CPT/HCPCS: 0275T; C1889; 76000-TC-FY; 82962; J1100

== ENCOUNTER 2023-04-17 10:57 | Inpatient (IN) | payer OTHER ==
[2023-04-17 11:08] VITALS: BMI 28.3
[2023-04-17 12:57] LABS: BASO % 1.1 % (0-2.0); EOS % 0.2 % (0-4.5); HEMATOCRIT 38.6 % (32.4-45.2); HEMOGLOBIN 12.5 GM/dL (10.7-15.3); LYMPH % 28.7 % (8-40); MCH 28.7 pg (25.7-33.7); MCHC 32.4 g/dl (32.0-36.0); MEAN CELL VOLUME 88.7 fl (80-96); MEAN PLT VOLUME 10.1 fl (7.5-11.1); MONO % 8.7 % (3.8-10.2); NEUT % 61.3 % (42.8-82.8); PLATELET COUNT 256 10^3/uL (134-434); RBC 4.35 M/mm3 (3.60-5.2); RDW 15.7 % (11.6-15.6); WHITE BLOOD COUNT 5.7 K/mm3 (4.0-10.0)
[2023-04-17 13:08] LABS: INR 0.93 (0.83-1.09); PROTHROMBIN TIME (PATIENT) 10.8 SEC (9.7-13.0)
[2023-04-17 13:11] LABS: ACTIVATED PTT 28.1 SECONDS (25.2-36.5)
[2023-04-17 13:24] LABS: POTASSIUM 5.2 mmol/L (3.5-5.1)
[2023-04-17 13:26] LABS: CALCIUM 9.1 mg/dL (8.5-10.1)
[2023-04-17 13:27] LABS: BLOOD UREA NITROGEN 11.7 mg/dL (7-18); MAGNESIUM 2.1 mg/dL (1.8-2.4)
[2023-04-17 13:30] LABS: CREATININE 0.8 mg/dL (0.55-1.3)
[2023-04-17 13:31] LABS: BILIRUBIN,TOTAL 0.6 mg/dL (0.2-1); TOT PROT 6.9 g/dl (6.4-8.2)
[2023-04-17 13:35] LABS: N-TERMINAL BNP 3221.7 pg/ml (5-125)
[2023-04-17] MEDS ORDERED: DOCUSATE SODIUM 100 MG CAPSULE (FP) PO PRN (20:21)
[2023-04-17] MEDS: FUROSEMIDE 40 MG/4 ML INJECTABLE VIAL IVPUSH ONE (21:52)
[2023-04-17] MEDS: INSULIN ASPART SLIDING SCALE (NOVOLOG) 1 VIAL SQ SCH (21:53)
[2023-04-18 07:22] LABS: BASO % 1.4 % (0-2.0); EOS % 0.7 % (0-4.5); HEMATOCRIT 35.6 % (32.4-45.2); HEMOGLOBIN 11.5 GM/dL (10.7-15.3); LYMPH % 33.2 % (8-40); MCH 28.6 pg (25.7-33.7); MCHC 32.3 g/dl (32.0-36.0); MEAN CELL VOLUME 88.5 fl (80-96); MEAN PLT VOLUME 10.7 fl (7.5-11.1); MONO % 12.4 % (3.8-10.2); NEUT % 52.3 % (42.8-82.8); PLATELET COUNT 215 10^3/uL (134-434); RBC 4.03 M/mm3 (3.60-5.2); RDW 15.1 % (11.6-15.6); WHITE BLOOD COUNT 4.9 K/mm3 (4.0-10.0)
[2023-04-18 07:33] LABS: POTASSIUM 3.9 mmol/L (3.5-5.1)
[2023-04-18 07:41] LABS: BLOOD UREA NITROGEN 14.6 mg/dL (7-18); MAGNESIUM 1.9 mg/dL (1.8-2.4)
[2023-04-18 07:44] LABS: CREATININE 0.8 mg/dL (0.55-1.3); PHOSPHOROUS 3.8 mg/dL (2.5-4.9)
[2023-04-18] MEDS: INSULIN (LEVEMIR) 100 UNITS/ML UNITS SQ SCH (08:26)
[2023-04-18] MEDS: ELVITEG/COB/EMTRI/TENOF (GENVOYA) TABLET PO SCH (10:25)
[2023-04-18] MEDS: ASPIRIN COATED 81 MG TABLET.EC PO SCH (10:26)
[2023-04-18] MEDS: FUROSEMIDE 40 MG/4 ML INJECTABLE VIAL IVPUSH SCH (10:26)
[2023-04-18] MEDS: hydrALAZINE HCL 25 MG TABLET (FP) PO SCH (10:26)
[2023-04-18] MEDS: amLODIPine BESYLATE 10 MG TABLET (FP) PO SCH (10:26)
[2023-04-18] MEDS: metoPROLOL SUCCINATE 25 MG TAB.SR.24H (FP) PO SCH (10:26)
[2023-04-18] MEDS: GABAPENTIN 300 MG CAPSULE PO SCH (13:56)
[2023-04-18] MEDS: ACETAMINOPHEN 325 MG TABLET (FP) PO PRN (14:12)
[2023-04-18] MEDS: ATORVASTATIN CA 20 MG TABLET (FP) PO SCH (21:39)
[2023-04-19] MEDS ORDERED: INSULIN (NOVOLOG) ASPART 100 UNITS/ML 10ML VIAL ONE ×3 (14:35→22:40)
[2023-04-20] MEDS: TORSEMIDE 20 MG TABLET (FP) PO SCH (10:57)
[2023-04-20] MEDS: metoPROLOL SUCCINATE 25 MG TAB.SR.24H (FP) PO ONE (15:13)
[2023-04-20] MEDS ORDERED: INSULIN (NOVOLOG) ASPART 100 UNITS/ML 10ML VIAL ONE (21:14)
[2023-04-21 07:30] LABS: POTASSIUM 3.7 mmol/L (3.5-5.1)
[2023-04-21 07:37] LABS: CALCIUM 9.2 mg/dL (8.5-10.1)
[2023-04-21 07:38] LABS: BLOOD UREA NITROGEN 31.5 mg/dL (7-18)
[2023-04-21 07:41] LABS: CREATININE 0.8 mg/dL (0.55-1.3)
[2023-04-21 15:02] VITALS: BP 106/70; PULSE 82; RESP 18; TEMP 98.4
== END 2023-04-21 16:41 | disposition home or self-care (01) | DRG 291 ==
LOC: JER 10:57 → JERBED 18:02 → J4W 21:13 → OBSVTOIN 04-20 14:10
PROVIDERS: ADMIT Internal Medicine; ATTEND Family Medicine
DX: I11.0 Hypertensive heart disease with heart failure (principal); I50.33 Acute on chronic diastolic (congestive) heart failure; I44.2 Atrioventricular block, complete; I47.20 Ventricular tachycardia, unspecified; E85.9 Amyloidosis, unspecified; B20 Human immunodeficiency virus [HIV] disease; E11.65 Type 2 diabetes mellitus with hyperglycemia; E88.09 Other disorders of plasma-protein metabolism, not elsewhere classified
CPT/HCPCS: 0241U-QW; 36415; 71046-TC-FY; 71275-TC; 80048; 80053; 80061; 82962; 83036; 83735; 83880; 84100; 84443; 84484; 85025; 85379; 85610; 85730; 93005; 93010; 93306-TC; 97116-GP; 97162-GP; 99285-25; G0378

== ENCOUNTER 2023-08-22 16:31 | Inpatient (IN) | payer OTHER ==
[2023-08-22 17:29] LABS: HEMATOCRIT 41.9 % (32.4-45.2); HEMOGLOBIN 13.2 G/dL (10.7-15.3); MCH 29.1 pg (25.7-33.7); MCHC 31.4 g/dl (32.0-36.0); MEAN CELL VOLUME 92.5 fl (80-96); MEAN PLT VOLUME 10.6 fl (7.5-11.1); PLATELET COUNT 183.8 10^3/uL (134-434); RBC 4.53 10^6/uL (3.60-5.2); RDW 14.3 % (11.6-15.6); WHITE BLOOD COUNT 4.2 10^3/uL (4.0-10.8)
[2023-08-22 17:52] LABS: ALK PHOS 88 U/L (45-117); ANION GAP 11 mmol/L (4-13); BILIRUBIN,TOTAL 0.6 mg/dl (0.2-1); CALCIUM 9.9 mg/dl (8.5-10.1); CHLORIDE 82 mmol/L (98-107); CO2 42 mmol/L (21-32); CREATININE 1.5 mg/dl (0.6-1.3); GLUCOSE,RANDOM 91 mg/dl (74-106); MAGNESIUM 2.9 mg/dL (1.8-2.4); SGOT/AST 33 U/L (15-37); SGPT/ALT 25 U/L (7-52); SODIUM 135 mmol/L (136-145); TOT PROT 6.8 g/dl (6.4-8.2)
[2023-08-22 17:58] LABS: POTASSIUM 2.5 mmol/L (3.5-5.1)
[2023-08-22 18:06] LABS: PLATELET ESTIMATE ADEQUATE
[2023-08-22] MEDS ORDERED: KCL 20 MEQ PREMIX BAG 20 MEQ/100 ML INFUS.BAG IVPB SCH (18:15)
[2023-08-22] MEDS ORDERED: POTASSIUM CHLORIDE TABS 20 MEQ TABLET.ER (FP) PO ONE (18:22)
[2023-08-22] MEDS ORDERED: KCL 10 MEQ IVPB 10 MEQ/100 ML INFUS.BAG IVPB ONE ×2 (18:23→19:26)
[2023-08-22] MEDS: POTASSIUM CHLORIDE ORAL LIQUID 20 MEQ/15 ML PO ONE (18:39)
[2023-08-22] MEDS: KCL 10 MEQ IVPB 10 MEQ/100 ML INFUS.BAG IVPB SCH (18:40)
[2023-08-22] MEDS: MAGNESIUM SULFATE IN WATER 2 GM/50 ML IVPB IVPB ONE (19:25)
[2023-08-23 06:23] VITALS: BMI 29.0
[2023-08-23] MEDS: INSULIN ASPART SLIDING SCALE (NOVOLOG) 1 VIAL SQ SCH (07:27)
[2023-08-23 08:57] LABS: CALCIUM 9.4 mg/dl (8.5-10.1); CREATININE 1.5 mg/dl (0.6-1.3); POTASSIUM 3.4 mmol/L (3.5-5.1)
[2023-08-23] MEDS: metoPROLOL SUCCINATE 25 MG TAB.SR.24H (FP) PO SCH (09:27)
[2023-08-23] MEDS: ASPIRIN COATED 81 MG TABLET.EC PO SCH (09:27)
[2023-08-23] MEDS: FOLIC ACID 1 MG TABLET (FP) PO SCH (09:27)
[2023-08-23] MEDS: amLODIPine BESYLATE 10 MG TABLET (FP) PO SCH (09:28)
[2023-08-23 12:37] LABS: BASO % 0.8 % (0-2.0); EOS % 1.6 % (0-4.5); HEMATOCRIT 34.9 % (32.4-45.2); HEMOGLOBIN 11.5 GM/dL (10.7-15.3); LYMPH % 40.5 % (8-40); MCH 29.2 pg (25.7-33.7); MCHC 32.8 g/dl (32.0-36.0); MEAN CELL VOLUME 89.1 fl (80-96); MEAN PLT VOLUME 10.7 fl (7.5-11.1); MONO % 14.9 % (3.8-10.2); NEUT % 42.2 % (42.8-82.8); PLATELET COUNT 172 10^3/uL (134-434); RBC 3.92 M/mm3 (3.60-5.2); RDW 13.9 % (11.6-15.6); WHITE BLOOD COUNT 4.6 K/mm3 (4.0-10.0)
[2023-08-23] MEDS: KCL 10 MEQ IVPB 10 MEQ/100 ML INFUS.BAG IVPB SCH (12:57)
[2023-08-23] MEDS: ELVITEG/COB/EMTRI/TENOF (GENVOYA) TABLET PO SCH (13:20)
[2023-08-23] MEDS: GABAPENTIN 300 MG CAPSULE PO SCH (14:22)
[2023-08-23] MEDS: ATORVASTATIN CA 20 MG TABLET (FP) PO SCH (22:21)
[2023-08-23] MEDS: LACTATED RINGERS SOLUTION 1,000 ML/1,000 ML INFUS.BAG IV SCH (22:24)
[2023-08-23 22:33] VITALS: RESP 18
[2023-08-23] MEDS: ACETAMINOPHEN 325 MG TABLET (FP) PO PRN (22:40)
[2023-08-24 08:52] LABS: HEMATOCRIT 37.9 % (32.4-45.2); HEMOGLOBIN 11.6 G/dL (10.7-15.3); MCH 28.2 pg (25.7-33.7); MCHC 30.6 g/dl (32.0-36.0); MEAN CELL VOLUME 92.3 fl (80-96); MEAN PLT VOLUME 11.5 fl (7.5-11.1); PLATELET COUNT 171.8 10^3/uL (134-434); RBC 4.11 10^6/uL (3.60-5.2); RDW 14.9 % (11.6-15.6); WHITE BLOOD COUNT 3.6 10^3/uL (4.0-10.8)
[2023-08-24 09:44] LABS: ALBUMIN 3.2 g/dl (3.4-5.0); ALK PHOS 69 U/L (45-117); ANION GAP 7 mmol/L (4-13); BILIRUBIN,TOTAL 0.5 mg/dl (0.2-1); CALCIUM 9.1 mg/dl (8.5-10.1); CHLORIDE 97 mmol/L (98-107); CO2 35 mmol/L (21-32); GLUCOSE,RANDOM 143 mg/dl (74-106); POTASSIUM 3.5 mmol/L (3.5-5.1); SGOT/AST 31 U/L (15-37); SGPT/ALT 22 U/L (7-52); SODIUM 139 mmol/L (136-145); TOT PROT 5.5 g/dl (6.4-8.2)
[2023-08-24 14:54] VITALS: BP 106/65; PULSE 78; TEMP 98.5
[2023-08-24 14:54] LABS: PLATELET ESTIMATE ADEQUATE
== END 2023-08-24 16:17 | disposition home or self-care (01) | DRG 683 ==
LOC: FER 16:31 → FM/S 18:14
PROVIDERS: ADMIT Internal Medicine; ATTEND Family Medicine
DX: N17.9 Acute kidney failure, unspecified (principal); B20 Human immunodeficiency virus [HIV] disease; E85.9 Amyloidosis, unspecified; E78.5 Hyperlipidemia, unspecified; E87.6 Hypokalemia; E11.9 Type 2 diabetes mellitus without complications; I11.0 Hypertensive heart disease with heart failure; I50.9 Heart failure, unspecified; E87.8 Other disorders of electrolyte and fluid balance, not elsewhere classified; R53.1 Weakness; T50.1X5A Adverse effect of loop [high-ceiling] diuretics, initial encounter
CPT/HCPCS: 36415; 80048; 80053; 82962; 83735; 85025; 85027; 93005; 99291

== ENCOUNTER 2023-09-12 10:49 | Observation (INO) | payer OTHER ==
[2023-09-12 12:28] LABS: HEMATOCRIT 40.4 % (32.4-45.2); HEMOGLOBIN 14.3 GM/dL (10.7-15.3); MCH 30.2 pg (25.7-33.7); MCHC 35.4 g/dl (32.0-36.0); MEAN CELL VOLUME 85.3 fl (80-96); MEAN PLT VOLUME 10.1 fl (7.5-11.1); PLATELET COUNT 285 10^3/uL (134-434); RBC 4.74 M/mm3 (3.60-5.2); RDW 16.1 % (11.6-15.6); WHITE BLOOD COUNT 6.1 K/mm3 (4.0-10.0)
[2023-09-12 12:34] LABS: INR 0.93 (0.83-1.09); PROTHROMBIN TIME (PATIENT) 10.7 SEC (9.7-13.0)
[2023-09-12 12:36] LABS: ACTIVATED PTT 28.4 SECONDS (25.2-36.5)
[2023-09-12 13:03] LABS: ANISOCYTOSIS 1+; MACROCYTOSIS 0
[2023-09-12] MEDS ORDERED: ASPIRIN 325 MG TABLET ONE (16:00)
[2023-09-12] MEDS: ASPIRIN 325 MG TABLET PO ONE (16:02)
[2023-09-12 17:48] LABS: CHLORIDE 86 mmol/L (98-107); SODIUM 130 mmol/L (136-145)
[2023-09-12 17:51] LABS: ALBUMIN 3.2 g/dl (3.4-5.0); BLOOD UREA NITROGEN 53.9 mg/dL (7-18); CO2 33 mmol/L (21-32); GLUCOSE,RANDOM 220 mg/dL (74-106)
[2023-09-12 17:54] LABS: CREATININE 1.5 mg/dL (0.55-1.3); SGOT/AST 42 U/L (15-37); SGPT/ALT 26 U/L (13-61)
[2023-09-12 17:56] LABS: BILIRUBIN,TOTAL 0.9 mg/dL (0.2-1)
[2023-09-12 17:57] LABS: ALK PHOS 101 U/L (45-117)
[2023-09-12 18:34] LABS: ANION GAP 11 mmol/L (4-13); POTASSIUM 2.9 mmol/L (3.5-5.1); TOT PROT 7.2 g/dl (6.4-8.2)
[2023-09-12] MEDS ORDERED: POTASSIUM CHLORIDE ORAL LIQUID 20 MEQ/15 ML ONE (19:51)
[2023-09-12] MEDS ORDERED: KCL 10 MEQ IVPB 10 MEQ/100 ML INFUS.BAG IVPB ONE ×3 (19:51→23:21)
[2023-09-12] MEDS: POTASSIUM CHLORIDE ORAL LIQUID 20 MEQ/15 ML PO ONE (19:55)
[2023-09-12] MEDS: KCL 10 MEQ IVPB 10 MEQ/100 ML INFUS.BAG IVPB SCH (20:00)
[2023-09-12] MEDS: SODIUM CHLORIDE 1,000 ML IV SCH (20:16)
[2023-09-12] MEDS ORDERED: POTASSIUM CHLORIDE ORAL LIQUID 20 MEQ/15 ML PO SCH (22:00)
[2023-09-12] MEDS ORDERED: DOCUSATE SODIUM 100 MG CAPSULE (FP) PO PRN (22:16)
[2023-09-12] MEDS ORDERED: DOCUSATE SODIUM 100 MG CAPSULE (FP) PO ONE (23:20)
[2023-09-12] MEDS ORDERED: hydrALAZINE HCL 25 MG TABLET (FP) ONE (23:20)
[2023-09-12] MEDS: hydrALAZINE HCL 25 MG TABLET (FP) PO SCH (23:48)
[2023-09-12] MEDS: DOCUSATE SODIUM 100 MG CAPSULE (FP) PO SCH (23:49)
[2023-09-13 01:37] VITALS: BMI 28.3
[2023-09-13 02:39] LABS: POTASSIUM 3.6 mmol/L (3.5-5.1)
[2023-09-13 02:40] LABS: CALCIUM 9.1 mg/dL (8.5-10.1)
[2023-09-13 02:41] LABS: BLOOD UREA NITROGEN 50.6 mg/dL (7-18)
[2023-09-13 02:44] LABS: CREATININE 1.4 mg/dL (0.55-1.3); PHOSPHOROUS 3.2 mg/dL (2.5-4.9)
[2023-09-13 04:06] LABS: MAGNESIUM 2.6 mg/dL (1.8-2.4)
[2023-09-13] MEDS ORDERED: INSULIN ASPART SLIDING SCALE (NOVOLOG) 1 VIAL SQ ONE (06:03)
[2023-09-13] MEDS: INSULIN ASPART SLIDING SCALE (NOVOLOG) 1 VIAL SQ SCH (06:04)
[2023-09-13 06:59] LABS: PH,URINE 5.5 (5.0-8.0); URINE APPEARANCE CLEAR; URINE BILIRUBIN NEGATIVE (NEGATIVE); URINE COLOR YELLOW; URINE GLUCOSE (UA) 3+ (NEGATIVE); URINE KETONE NEGATIVE (NEGATIVE); URINE LEUK ESTERASE NEGATIVE (NEGATIVE); URINE NITRITE NEGATIVE (NEGATIVE); URINE PROTEIN TRACE (NEGATIVE); URINE UROBILINOGEN 0.2 mg/dL (0.2-1.0)
[2023-09-13 09:24] LABS: BASO % 1.1 % (0-2.0); EOS % 0.4 % (0-4.5); HEMATOCRIT 38.8 % (32.4-45.2); LYMPH % 41.2 % (8-40); MCH 30.1 pg (25.7-33.7); MCHC 33.4 g/dl (32.0-36.0); MEAN PLT VOLUME 10.5 fl (7.5-11.1); MONO % 11.8 % (3.8-10.2); NEUT % 45.5 % (42.8-82.8); PLATELET COUNT 211 10^3/uL (134-434); RDW 13.9 % (11.6-15.6); WHITE BLOOD COUNT 5.5 K/mm3 (4.0-10.0)
[2023-09-13 09:29] LABS: MEAN CELL VOLUME 90.3 fl (80-96)
[2023-09-13] MEDS: ASPIRIN COATED 81 MG TABLET.EC PO SCH (09:39)
[2023-09-13] MEDS: metoPROLOL SUCCINATE 25 MG TAB.SR.24H (FP) PO SCH (09:40)
[2023-09-13] MEDS: MULTIVITAMINS THER W-MINERALS COMBO TABLET (FP) PO SCH (09:40)
[2023-09-13] MEDS: FOLIC ACID 1 MG TABLET (FP) PO SCH (09:40)
[2023-09-13] MEDS: amLODIPine BESYLATE 10 MG TABLET (FP) PO SCH (09:41)
[2023-09-13] MEDS ORDERED: PATIENT'S OWN MEDICATION (NON-FORMULARY) (Mirabegron [Myrbetriq] 50 MG Tab.Er.24h) PO SCH (10:00)
[2023-09-13] MEDS ORDERED: ELVITEG/COB/EMTRI/TENOF (GENVOYA) TABLET PO SCH (10:00)
[2023-09-13] MEDS: PNEUMOC 20-VAL CONJ-DIP CRM/PF 0.5 ML SYRINGE IM ONE (10:01)
[2023-09-13] MEDS: CHOLECALCIFEROL (VIT D3) 5000 UNITS (125 MCG) CAP PO SCH (10:14)
[2023-09-13] MEDS: ACETAMINOPHEN 325 MG TABLET (FP) PO PRN (11:27)
[2023-09-13] MEDS: ELVITEG/COB/EMTRI/TENOF (GENVOYA) TABLET PO SCH (13:05)
[2023-09-13] MEDS: POTASSIUM CHLORIDE ORAL LIQUID 20 MEQ/15 ML PO ONE (13:25)
[2023-09-13] MEDS: ATORVASTATIN CA 20 MG TABLET (FP) PO SCH (21:53)
[2023-09-14 08:33] LABS: POTASSIUM 3.6 mmol/L (3.5-5.1)
[2023-09-14 08:38] LABS: BLOOD UREA NITROGEN 26.5 mg/dL (7-18); CALCIUM 9.2 mg/dL (8.5-10.1)
[2023-09-14 08:41] LABS: BILIRUBIN,TOTAL 0.9 mg/dL (0.2-1)
[2023-09-14 08:43] LABS: TOT PROT 6.2 g/dl (6.4-8.2)
[2023-09-14] MEDS: SODIUM CHLORIDE 1,000 ML IV SCH (11:32)
[2023-09-15 10:43] LABS: POTASSIUM 4.2 mmol/L (3.5-5.1)
[2023-09-15] MEDS: POTASSIUM CHLORIDE TABS 10 MEQ TABLET.ER (FP) PO SCH (10:44)
[2023-09-15 10:53] LABS: CALCIUM 8.7 mg/dL (8.5-10.1)
[2023-09-15 10:54] LABS: ALBUMIN 2.8 g/dl (3.4-5.0); BLOOD UREA NITROGEN 25.1 mg/dL (7-18)
[2023-09-15 10:59] LABS: TOT PROT 5.7 g/dl (6.4-8.2)
[2023-09-15 11:00] LABS: BILIRUBIN,TOTAL 0.9 mg/dL (0.2-1)
[2023-09-16] MEDS ORDERED: INSULIN ASPART SLIDING SCALE (NOVOLOG) 1 VIAL SQ ONE (06:21)
[2023-09-16] MEDS ORDERED: ERTUGLIFLOZIN PIDOLATE 15 MG PO SCH (10:00)
[2023-09-16] MEDS: INSULIN (LEVEMIR) 100 UNITS/ML UNITS SQ SCH ×2 (11:00→22:15)
[2023-09-16 14:57] VITALS: RESP 18
[2023-09-17] MEDS ORDERED: PATIENT'S OWN MEDICATION (NON-FORMULARY) (Insulin Glargine,Hum.Rec.Anlog [Basaglar Kwikpen SQ SCH (07:00)
[2023-09-17] MEDS: TRIAMTERENE 50 MG CAPSULE PO SCH (10:45)
[2023-09-17 11:47] VITALS: BP 119/56; PULSE 85; TEMP 98.2
== END 2023-09-17 15:19 | disposition home or self-care (01) ==
LOC: JER 10:49 → JERBED 20:17 → J4W 09-13 00:44
PROVIDERS: ADMIT Internal Medicine; ATTEND Family Medicine
PROC: 3E013VG Introduction of Insulin into Subcutaneous Tissue, Percutaneous Approach (ICD-10-PCS; principal; 2023-09-12)
PROC: 3E0337Z Introduction of Electrolytic and Water Balance Substance into Peripheral Vein, Percutaneous Approach (ICD-10-PCS; 2023-09-12)
DX: N17.9 Acute kidney failure, unspecified (principal); E87.1 Hypo-osmolality and hyponatremia; R79.89 Other specified abnormal findings of blood chemistry; E87.6 Hypokalemia; E78.5 Hyperlipidemia, unspecified; E11.9 Type 2 diabetes mellitus without complications; I10 Essential (primary) hypertension; E85.9 Amyloidosis, unspecified; Z90.49 Acquired absence of other specified parts of digestive tract; B20 Human immunodeficiency virus [HIV] disease; I49.9 Cardiac arrhythmia, unspecified; Z23 Encounter for immunization
CPT/HCPCS: 0241U-QW; 36415; 70450-TC; 71045-TC-FY; 80048; 80053; 81003; 82962; 83690; 83735; 84100; 84439; 84443; 84484; 85025; 85610; 85730; 87086; 90677; 93005; 93010; 93306-TC; 96360; 96372; 97116-GP; 97162-GP; 99285-25; G0378

== ENCOUNTER 2023-11-10 14:52 | Observation (INO) | payer OTHER ==
[2023-11-10 15:01] VITALS: BMI 30.7
[2023-11-10 15:53] LABS: VENOUS BASE EXCESS -0.6 mmol/L (-2-2); VENOUS PCO2 44.6 mmHg (38-52); VENOUS PH 7.366 (7.310-7.410)
[2023-11-10] MEDS ORDERED: ACETAMINOPHEN INJECTION 100 ML ONE (15:53)
[2023-11-10] MEDS ORDERED: LIDOCAINE 4% PATCH TP ONE (15:53)
[2023-11-10] MEDS: ACETAMINOPHEN 1000 MG/100 ML BAG IVPB ONE (15:54)
[2023-11-10] MEDS: LIDOCAINE 4% PATCH TP ONE (15:54)
[2023-11-10 15:59] LABS: BASO % 1.2 % (0-2.0); EOS % 0.5 % (0-4.5); HEMATOCRIT 34.6 % (32.4-45.2); LYMPH % 33.4 % (8-40); MCH 30.5 pg (25.7-33.7); MCHC 31.9 g/dl (32.0-36.0); MEAN CELL VOLUME 95.6 fl (80-96); MEAN PLT VOLUME 10.1 fl (7.5-11.1); MONO % 11.2 % (3.8-10.2); NEUT % 53.7 % (42.8-82.8); PLATELET COUNT 235 10^3/uL (134-434); RBC 3.62 M/mm3 (3.60-5.2); WHITE BLOOD COUNT 5.6 K/mm3 (4.0-10.0)
[2023-11-10 16:08] LABS: INR 0.92 (0.83-1.09); PROTHROMBIN TIME (PATIENT) 10.6 SEC (9.7-13.0)
[2023-11-10 16:10] LABS: ACTIVATED PTT 30.4 SECONDS (25.2-36.5)
[2023-11-10 16:13] LABS: POTASSIUM 4.5 mmol/L (3.5-5.1)
[2023-11-10 16:15] LABS: ALBUMIN 3.4 g/dl (3.4-5.0); BLOOD UREA NITROGEN 21.8 mg/dL (7-18); CALCIUM 9.9 mg/dL (8.5-10.1); MAGNESIUM 2.3 mg/dL (1.8-2.4)
[2023-11-10 16:18] LABS: CREATININE 1.1 mg/dL (0.55-1.3)
[2023-11-10 16:20] LABS: BILIRUBIN,TOTAL 0.4 mg/dL (0.2-1); TOT PROT 6.8 g/dl (6.4-8.2)
[2023-11-10] MEDS ORDERED: DOCUSATE SODIUM 100 MG CAPSULE (FP) PO PRN (19:49)
[2023-11-10 21:12] LABS: HIV INTERPRETATION PRESUMPTIVE POSITIVE (NEGATIVE)
[2023-11-10 21:13] LABS: EPI CELLS 3 /uL (0-25.1); HYALINE CASTS 0 /uL (0-3.1); PH,URINE 6.5 (5.0-8.0); URINE APPEARANCE CLEAR; URINE BACTERIA 6 /uL (0-1359); URINE BILIRUBIN NEGATIVE (NEGATIVE); URINE COLOR YELLOW; URINE GLUCOSE (UA) 3+ (NEGATIVE); URINE KETONE NEGATIVE (NEGATIVE); URINE LEUK ESTERASE NEGATIVE (NEGATIVE); URINE NITRITE NEGATIVE (NEGATIVE); URINE PROTEIN 2+ (NEGATIVE); URINE RBC 8 /uL (0-23.9); URINE UROBILINOGEN 0.2 mg/dL (0.2-1.0); URINE WBC 5 /uL (0-25.8)
[2023-11-10] MEDS ORDERED: LIDOCAINE PATCH REMOVAL MC SCH (22:00)
[2023-11-10] MEDS ORDERED: INSULIN ASPART SLIDING SCALE (NOVOLOG) 1 VIAL SQ ONE (22:29)
[2023-11-10] MEDS: INSULIN ASPART SLIDING SCALE (NOVOLOG) 1 VIAL SQ SCH (22:36)
[2023-11-11] MEDS: SPIRONOLACTONE 25 MG TABLET PO SCH (00:58)
[2023-11-11] MEDS: LIDOCAINE PATCH REMOVAL MC ONE (04:47)
[2023-11-11] MEDS ORDERED: ACETAMINOPHEN 325 MG TABLET (FP) ONE (05:29)
[2023-11-11] MEDS: ACETAMINOPHEN 325 MG TABLET (FP) PO PRN (05:50)
[2023-11-11 07:13] LABS: POTASSIUM 5.2 mmol/L (3.5-5.1)
[2023-11-11 07:17] LABS: BLOOD UREA NITROGEN 21.2 mg/dL (7-18); CALCIUM 9.6 mg/dL (8.5-10.1)
[2023-11-11 07:20] LABS: CREATININE 0.9 mg/dL (0.55-1.3)
[2023-11-11 07:21] LABS: PHOSPHOROUS 4.1 mg/dL (2.5-4.9)
[2023-11-11] MEDS ORDERED: INSULIN ASPART SLIDING SCALE (NOVOLOG) 1 VIAL SQ ONE ×3 (07:56→18:24)
[2023-11-11] MEDS: ELVITEG/COB/EMTRI/TENOF (GENVOYA) TABLET PO SCH (09:33)
[2023-11-11] MEDS: hydrALAZINE HCL 25 MG TABLET (FP) PO SCH (09:33)
[2023-11-11] MEDS ORDERED: FUROSEMIDE 40 MG/4 ML INJECTABLE VIAL ONE (12:45)
[2023-11-11] MEDS: FUROSEMIDE 40 MG/4 ML INJECTABLE VIAL IVPUSH SCH (12:48)
[2023-11-11 22:16] LABS: BASO % 0.8 % (0-2.0); EOS % 0.7 % (0-4.5); HEMATOCRIT 34.5 % (32.4-45.2); HEMOGLOBIN 11.2 GM/dL (10.7-15.3); LYMPH % 30.1 % (8-40); MCH 30.6 pg (25.7-33.7); MCHC 32.5 g/dl (32.0-36.0); MEAN CELL VOLUME 94.1 fl (80-96); MONO % 13.4 % (3.8-10.2); PLATELET COUNT 215 10^3/uL (134-434); RBC 3.67 M/mm3 (3.60-5.2); RDW 14.2 % (11.6-15.6); WHITE BLOOD COUNT 4.6 K/mm3 (4.0-10.0)
[2023-11-11] MEDS: ATORVASTATIN CA 20 MG TABLET (FP) PO SCH (22:22)
[2023-11-12 04:39] LABS: POTASSIUM 4.9 mmol/L (3.5-5.1)
[2023-11-12 04:40] LABS: BLOOD UREA NITROGEN 26.7 mg/dL (7-18); CALCIUM 9.3 mg/dL (8.5-10.1)
[2023-11-12 04:44] LABS: CREATININE 0.9 mg/dL (0.55-1.3)
[2023-11-12] MEDS ORDERED: INSULIN ASPART SLIDING SCALE (NOVOLOG) 1 VIAL SQ ONE (07:05)
[2023-11-13] MEDS: INSULIN (LEVEMIR) 100 UNITS/ML UNITS SQ SCH (09:20)
[2023-11-13] MEDS: FUROSEMIDE 20 MG TABLET (FP) PO SCH (10:03)
[2023-11-13 12:10] VITALS: RESP 16
[2023-11-13 14:49] VITALS: BP 116/63; PULSE 102; TEMP 99.1
[2023-11-13] MEDS ORDERED: INSULIN (LEVEMIR) 100 UNITS/ML UNITS SQ SCH (22:00)
== END 2023-11-13 18:39 | disposition home or self-care (01) ==
LOC: JER 14:52 → JERBED 19:43 → J4S 11-11 20:25
PROVIDERS: ADMIT Internal Medicine; ATTEND Family Medicine
PROC: 3E033NZ Introduction of Analgesics, Hypnotics, Sedatives into Peripheral Vein, Percutaneous Approach (ICD-10-PCS; principal; 2023-11-10)
PROC: 3E033GC Introduction of Other Therapeutic Substance into Peripheral Vein, Percutaneous Approach (ICD-10-PCS; 2023-11-10)
PROC: 3E013VG Introduction of Insulin into Subcutaneous Tissue, Percutaneous Approach (ICD-10-PCS; 2023-11-10)
PROC: 3E013VG Introduction of Insulin into Subcutaneous Tissue, Percutaneous Approach (ICD-10-PCS; 2023-11-10)
DX: B20 Human immunodeficiency virus [HIV] disease (principal); I11.0 Hypertensive heart disease with heart failure; E87.6 Hypokalemia; E11.9 Type 2 diabetes mellitus without complications; M19.90 Unspecified osteoarthritis, unspecified site; R06.01 Orthopnea; Z86.39 Personal history of other endocrine, nutritional and metabolic disease; Z90.49 Acquired absence of other specified parts of digestive tract; I47.20 Ventricular tachycardia, unspecified
CPT/HCPCS: 0241U-QW; 36415; 71045-TC-FY; 80048; 80053; 81003; 82803; 82962; 83735; 83880; 84100; 84484; 85025; 85610; 85730; 86803; 87086; 87389; 93005; 93010; 96372; 96374; 96375; 99285-25; G0378; J0131

== ENCOUNTER → 2024-04-30 | Day surgery (SDC) | payer OTHER ==
[2024-04-29 08:57] VITALS: BMI 27.6
[~2024-04-30] MED LIST changes: +ACETAMINOPHEN 500 MG TABLET (FP) PO PRN; +ACETAMINOPHEN INJECTION 100 ML ONE; +DEXMEDETOMIDINE HCL 200 MCG/2 ML IVPB ONE; +LACTATED RINGERS SOLUTION 1,000 ML IV SCH; -LIDOCAINE HCL 1% PRESERVATIVE FREE - 30ML VIAL IJ ONE; +LIDOCAINE HCL/PF 1% SDV 5ML VIAL ONE; +LIDOCAINE HCL/PF 2% SDV 5ML VIAL ONE; +MIDAZOLAM HCL 2 MG/2 ML SINGLE DOSE VIAL ONE; +PROPOFOL 20 ML ONE
[2024-04-30] MEDS: ceFAZolin SODIUM 1 GM VIAL IVPB ONE (10:43)
[2024-04-30] MEDS: LIDOCAINE HCL/PF 2% SDV 5ML VIAL INF ONE ×3 (10:53)
[2024-04-30] MEDS: LIDOCAINE HCL 1% PRESERVATIVE FREE - 30ML VIAL IJ ONE ×2 (10:53)
[2024-04-30] MEDS: ACETAMINOPHEN 1000 MG/100 ML BAG IVPB ONE (13:13)
[2024-04-30 16:15] VITALS: BP 125/72; PULSE 81; RESP 18; TEMP 97.1
== END | disposition home or self-care (01) ==
LOC: JASU-SURG 05:19
PROVIDERS: ATTEND Pain Medicine Pain Medicine
PROC: 0Q503ZZ Destruction of Lumbar Vertebra, Percutaneous Approach (ICD-10-PCS; principal; 2024-04-30 10:15)
DX: M54.51 Vertebrogenic low back pain (principal)
CPT/HCPCS: 76000-TC-FY; 82962; 94760; C1886; J0131